=== PATIENT | male | born 1985 | race Caucasian/White ===

== ENCOUNTER 2016-11-23 07:51 | Emergency (ER) | payer SELFPAY ==
[~2016-11-23] VITALS: Ht 172.7 cm; Wt 85.0 kg
[~2016-11-23 07:51] MED LIST: IBUP-1542 PO
[2016-11-23 07:53] VITALS: Ht 172.7 cm; Wt 85.0 kg
--- NOTE | 2016-11-23 08:13 | ERD ---
ER Documentation Chief Complaint Date/Time DATE: 11/23/16 TIME: 08:09 Chief Complaint suture removal HPI This is a 31-year-old male that presents to the emergency department for suture removal of his left pinky finger. 8 days prior to arrival the patient had a laceration to the palmar aspect of his left pinky that resulted in 5 sutures being placed. The patient has had no fevers or shaking or chills. He stated there is been no pus or drainage from the laceration site. He has had no swelling numbness or pain of the left finger. He is not on antibiotics and his tetanus toxoid is up-to-date ROS All systems reviewed and are negative except as per history of present illness. Medications Home Meds Active Scripts Ibuprofen* (Motrin*) 600 Mg Tab, 600 MG PO Q6, #30 TAB Prov:CHEYANNE PARRA PA-C 11/15/16 Allergies Allergies: Coded Allergies: No Known Allergy (Unverified , 11/15/16) PMhx/Soc History of Surgery: No Anesthesia Reaction: No Hx Neurological Disorder: No Hx Respiratory Disorders: No Hx Cardiac Disorders: No Hx Psychiatric Problems: No Hx Miscellaneous Medical Probl: No Hx Alcohol Use: Yes (socially) Hx Substance Use: No Hx Tobacco Use: No Physical Exam Vitals Vital Signs Date Time Temp Pulse Resp B/P Pulse Ox O2 Delivery O2 Flow Rate FiO2 11/23/16 07:53 98.2 68 18 140/80 99 Physical Exam Constitutional:Well-developed. Well-nourished. Muscle skeletal: Full range of motion of both the upper and lower extremities bilaterally.Normal muscle tone.No assymetrical calf tenderness or swelling. Skin: No petechia, no purpura. No lesions on the palms or the soles of the feet. No maculopapular rash. Laceration site over the distal palmar left fifth phalanx of the hand is clean dry and intact with [address] in place. No fusiform swelling of the left fifth digit. Left fifth finger is not held in slight flexion and no tenderness with passive extension. NEURO: Patient was alert, awake, orientated x3.No facial droop. Gait observed and normal with no ataxia.Speech had regular rate and rhythm. No focal neurological deficits. Sensation intact of the left radial ulnar and median nerve distribution. FDP and FDS are intact bilaterally Procedures/MDM This patient presented to the emergency department with a laceration 8 days prior to arrival with suture repair. There is no signs of infection or tenosynovitis. The patient was neurovascularly intact. The simple interrupted sutures were removed by myself and afterwards again the patient remained neurovascularly intact with no evidence of infection The patient was discharged home in fair condition. They were instructed to return to the emergency department at any time if there was any worsening of their condition. The patient stated they would follow up with their PCP in the next 24-48 hours to initiate a suitable medication regimen under the care of their PCP as well as to allow their PCP to monitor any drug reactions. The patient was discharged home with prescriptions after they gave informed consent to the new medication. They were also fully informed by myself on the adverse effects and adverse drug interactions in order to provide adequate safeguards to prevent possible adverse reactions to medications. Departure Diagnosis: Primary Impression: Encounter for removal of sutures Condition: Fair Patient Instructions: Suture Removal, No Complication JANIS FUCHS Nov 23, 2016 08:13
== END 2016-11-23 08:18 | disposition home or self-care (01) ==
LOC: FTE 07:51
DX: Z48.02 Encounter for removal of sutures (principal)
CPT/HCPCS: 99281